=== PATIENT | male | born 1930 | race Caucasian/White ===

== ENCOUNTER 2017-02-19 15:30 | Emergency (ER) | payer MEDICARE, OTHER ==
[2017-02-19] MEDS ORDERED: Acetaminophen 500 MG TAB ONE (16:58)
--- NOTE | 2017-02-19 17:17 | RAD ---
AP VIEW OF THE CHEST: INDICATIONS: Flu-like symptoms with chest pain. COMPARISON: Prior exam dated 03/10/2011. IMPRESSION: No acute cardiopulmonary abnormality. The examination does [facility] appear [facility] Specifically, no focal consolidation is evident. There is interval c hange of a right total shoulder replacement. ACDF is partially visualized within the lower cervical spine. POS: [facility]
[2017-02-19 17:46] LABS: #Eosinphils 0.1 thou/uL (0.0-0.7); #Lymphocytes 2.1 thou/uL (1.20-3.40); #Neutrophils 6.7 thou/uL (1.40-6.50); %Basophils 0.4 % (0.0-1.0); %Eosinophils 0.8 % (0.0-10.0); %Lymphocytes 21.1 % (21.0-51.0); %Monocytes 9.6 % (0.0-10.0); %Neutrophils 68.1 % (42.0-75.0); Hemoglobin 14.7 g/dL (14.0-18.0); Mean Corpuscular HGB CONC 33.6 g/dL (32.0-36.0); Mean Corpuscular Hemoglobin 31.6 pg (27.0-31.0); Mean Platelet Volume 6.4 fL (7.4-10.4); Platelet Count 163 thou/uL (130-400); RBC Distribution Width 12.8 % (11.5-14.5); Red Blood Cell (RBC) Count 4.66 mill/uL (4.70-6.10); White Blood Cell (WBC) Count 9.9 thou/uL (4.8-10.8)
[2017-02-19 18:03] LABS: ALT (SGPT) 32 U/L (8-55); AST (SGOT) 56 U/L (5-34); Albumin 4.2 g/dL (3.4-4.8); Alkaline Phosphatase 71 U/L (40-150); Anion Gap 17 mmol/L (10-20); BUN (Urea Nitrogen) 15 mg/dL (8.4-25.7); Bilirubin, Total 0.9 mg/dL (0.2-1.2); CK (CPK) 699 U/L (30-200); Calc. Creatinine Clearance 0 mL/min (70-130); Calcium 9.8 mg/dL (7.8-10.44); Carbon Dioxide 23 mmol/L (23-31); Chloride 97 mmol/L (98-107); Estimated GFR-MDRD 46; Globulin 3.8 g/dL (2.4-3.5); Glucose 130 mg/dL (83-110); Potassium 4.2 mmol/L (3.5-5.1); Sodium 133 mmol/L (136-145)
[2017-02-19 18:08] LABS: CKMB 3.3 ng/mL (0-6.6); Troponin I 0.016 ng/mL (< 0.028)
== END 2017-02-19 18:37 | disposition home or self-care (01) ==
LOC: ERS 15:30
DX: J11.1 Influenza due to unidentified influenza virus with other respiratory manifestations (principal); I10 Essential (primary) hypertension; E11.9 Type 2 diabetes mellitus without complications; Z79.84 Long term (current) use of oral hypoglycemic drugs
CPT/HCPCS: 36415; 71010; 80053; 82553; 83605; 84484; 85025; 87081; 87430; 93005

== ENCOUNTER 2017-08-29 01:23 | Emergency (ER) | payer MEDICARE, OTHER ==
[2017-08-29] MEDS ORDERED: HYDROcodone/Acetaminophen 5/325 mg Tablet ONE (02:12)
--- NOTE | 2017-08-29 08:05 | RAD ---
LEFT SHOULDER 3 VIEWS: Date: 08/29/17 HISTORY: Fall. Left shoulder pain. FINDINGS/IMPRESSION: There is a mildly angulated, comminuted fracture involving the proximal left humerus. POS: [facility]
--- NOTE | 2017-08-29 08:08 | RAD ---
3 VIEWS LEFT HAND: Date: 08/29/17 HISTORY: Left hand trauma with pain. FINDINGS: AP, lateral, and oblique views of left hand obtained. 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 No evidence of acute fractures or left hand bony lesions seen. IMPRESSION: No evidence of acute left hand abnormality seen. POS: [facility]
--- NOTE | 2017-08-29 08:12 | RAD ---
2 VIEWS LEFT ELBOW: Date: 08/29/17 HISTORY: Fall. FINDINGS: AP and lateral views of left elbow obtained. Two views of the left elbow demonstrate no evidence of left elbow fractures, subluxations, or bony le sions. IMPRESSION: Normal 2 views left elbow. POS: [facility]
--- NOTE | 2017-08-29 09:13 | RAD ---
LEFT HUMERUS 2 VIEWS: Date: 08/29/17 HISTORY: Fall, left shoulder pain. FINDINGS/IMPRESSION: There is a minimally displaced, comminuted fracture involving the left proximal humerus. POS: [facility]
== END 2017-08-29 03:36 | disposition home or self-care (01) ==
LOC: ERS 01:23
DX: S42.202A Unspecified fracture of upper end of left humerus, initial encounter for closed fracture (principal); I10 Essential (primary) hypertension; E11.9 Type 2 diabetes mellitus without complications; Z79.84 Long term (current) use of oral hypoglycemic drugs; Z79.899 Other long term (current) drug therapy; W01.0XXA Fall on same level from slipping, tripping and stumbling without subsequent striking against object, initial encounter

== ENCOUNTER 2017-09-01 11:11 | Emergency (ER) | payer MEDICARE, OTHER ==
--- NOTE | 2017-09-01 12:20 | RAD ---
LEFT SHOULDER 3 VIEWS: Date: 09/01/17 HISTORY: Left shoulder pain, fracture. FINDINGS/IMPRESSION: There is a mildly displaced comminuted fracture involving the left proximal humerus, which was noted on the previous study. There is mildly increased displacement of the greater tuberosity fracture frag ment. No dislocation is seen. POS: [facility]
[2017-09-01] MEDS ORDERED: HYDROcodone/Acetaminophen 10/325 mg Tablet ONE (12:34)
== END 2017-09-01 12:45 | disposition home or self-care (01) ==
LOC: ERS 11:11
DX: S42.252A Displaced fracture of greater tuberosity of left humerus, initial encounter for closed fracture (principal); I10 Essential (primary) hypertension; E11.9 Type 2 diabetes mellitus without complications; X58.XXXA Exposure to other specified factors, initial encounter

== ENCOUNTER 2017-12-27 14:29 | Outpatient (CLI) | payer MEDICARE, OTHER ==
--- NOTE | 2017-12-27 14:51 | RAD ---
TWO VIEW CHEST SERIES: History: Pre-operative evaluation. Comparison: 02-19-17 FINDINGS: Mild patchy left basilar density is similar. Cardiomediastinal silhouette is stable. No significant i nterval change. IMPRESSION: Subtle patchy left basilar density is grossly stable and may relate to an areas of scarring. POS: [facility]
== END 2017-12-27 14:30 | disposition home or self-care (01) ==
LOC: RAD-FRANK 14:29
PROVIDERS: ATTEND Internal Medicine
DX: Z01.818 Encounter for other preprocedural examination (principal)
CPT/HCPCS: 71046

== ENCOUNTER 2018-01-01 10:15 | Inpatient (IN) | payer MEDICARE, OTHER ==
[2018-01-01 10:46] VITALS: BMI 26.3
[2018-01-03] MEDS ORDERED: Lidocaine 2% Jelly 5 ML TUBE ONE (10:52)
[2018-01-03] MEDS ORDERED: Midazolam HCl 2 mg/2 ml Vial ONE (11:16)
[2018-01-03] MEDS ORDERED: Fentanyl 100 MCG/2 ML VIAL ONE ×2 (11:16→14:34)
[2018-01-03] MEDS ORDERED: CEFAZOLIN 2 GM/50 ML BAG ONE (11:58)
[2018-01-03] MEDS ORDERED: Promethazine HCl 25 MG/ML VIAL IM PRN (12:04)
[2018-01-03] MEDS ORDERED: Phenylephrine HCL 10 MG/ML VIAL ONE (12:04)
[2018-01-03] MEDS ORDERED: Fentanyl 100 MCG/2 ML VIAL SLOW IVP PRN (12:04)
[2018-01-03] MEDS ORDERED: HYDROcodone/Acetaminophen 5/325 mg Tablet PO PRN (12:04)
[2018-01-03] MEDS ORDERED: Ondansetron PF 4 MG/2 ML Vial IVP PRN (12:04)
[2018-01-03] MEDS ORDERED: traMADol HCl 50 MG TAB PO PRN ×2 (12:04)
[2018-01-03] MEDS ORDERED: Zolpidem Tartrate 5 MG TAB PO PRN (12:04)
[2018-01-03] MEDS ORDERED: Ropivacaine 0.2% 550 ML 550 ML NERVE BLCK SCH (12:04)
[2018-01-03] MEDS ORDERED: Acetaminophen 500 MG TAB PO PRN (12:07)
[2018-01-03] MEDS ORDERED: CEFAZOLIN/Water 2 GM/20 ML SYRINGE SLOW IVP SCH (14:15)
[2018-01-03] MEDS ORDERED: RENALLY ADJUST ABX FS SCH (14:15)
[2018-01-03] MEDS ORDERED: Milk Of Magnesia 30 ML UDCUP PO PRN (14:15)
[2018-01-03] MEDS ORDERED: Ondansetron HCl/PF 4 MG/2 ML Vial IVP PRN (14:32)
[2018-01-03] MEDS ORDERED: Ropivacaine 0.2% HCl/PF (40 MG/20 ML VIAL) ONE (15:57)
--- NOTE | 2018-01-03 16:15 | RAD ---
TWO VIEW LEFT SHOULDER SERIES: 01/03/18 INDICATION: Left shoulder arthroplasty. FINDINGS: Two views of the left shoulder reveal left shoulder prosthesis without evidence of hardware complicat ion visualized. There is a component of osseous fragmentation at the residual proximal left humerus. There is incidental note of patchy density of the left lung base. IMPRESSION: 1. Postoperative left shoulder without acute hardware complication identified. 2. There is residual osseous fragmentation adjacent the lateral and proximal aspect of the humer al prosthetic component. POS: [facility]
[2018-01-03] MEDS: HYDROcodone/Acetaminophen 5/325 mg Tablet PO PRN ×2 (16:18→22:58)
[2018-01-03] MEDS ORDERED: PROPOFOL 200 MG/20 ML VIAL ONE (17:25)
[2018-01-03] MEDS ORDERED: Glycopyrrolate 0.2 MG/ML 5 ML SYRINGE ONE (17:25)
[2018-01-03] MEDS ORDERED: Ondansetron PF 4 MG/2 ML Vial ONE (17:25)
[2018-01-03] MEDS ORDERED: PHENYLEPHRINE-NS 100 MCG/ML 10 ML SYRINGE ONE (17:25)
[2018-01-03] MEDS: Ketorolac Tromethamine 30 MG/ML VIAL IVP SCH ×2 (17:35→23:02)
--- NOTE | 2018-01-03 18:44 | OP ---
DATE OF PROCEDURE: 01/03/2018 OPERATION: Left reverse shoulder arthroplasty. PREOPERATIVE DIAGNOSIS: Left proximal humerus fracture nonunion. POSTOPERATIVE DIAGNOSIS: Left proximal humerus fracture, nonunion. COMPLICATIONS: None. ESTIMATED BLOOD LOSS: Minimal. SURGEON: Santino Harkins M.D. ANESTHESIA: General. KNIFE SETTER: Jeanmarie Long PA-C. ESTIMATED BLOOD LOSS: 400 mL IMPLANTS: DePuy reverse shoulder arthroplasty size 14 stem +18 buildup including a +9 polyethylene, 42 mm glenosphere. INDICATIONS: Mr. Solis is an 87-year-old male who fractured his left proximal humerus. This deve loped nonunion. He had significant disability and pain from this. He was indicated for reverse shou lder arthroplasty to restore function and relieve symptoms. Risks were reviewed in detail. He elect ed to proceed with the operation. DESCRIPTION OF PROCEDURE: Mr. Solis was identified in the preoperative holding area. His correct extremity was marked. He was carried to the operating room. He was positioned supine. General ane sthesia was induced. A multidisciplinary timeout was performed. The left upper extremity was preppe d and draped in sterile fashion. We began the procedure with deltopectoral approach. We dissected down through the subcutaneous tissu es to the fascia. The level of the fascia was exposed. We exposed the underlying brachiocephalic vei n. We developed deltopectoral interval bluntly. At this point, we exposed the underlying clavipecto ral fascia, which was incised. We then encountered the proximal humerus fracture. We developed a pl ane of the subscapularis and held a small fragment of the lesser tuberosity as well as greater tubero sity with stay sutures. We removed the broken humeral head. We cleared the glenoid fossa of all fra gments. At this point, we exposed the glenoid. We placed a center pin in the glenoid. We over ream ed this and then drilled for central peg. At this point, we impacted our baseplate. Three screws we re placed in the baseplate. These were locking in nature. We then impacted our glenosphere and tig tened our locking screw for this. Finally, we double delivered the humeral stem. We reamed the stem up to a size 14, which gave good chatter. We then trialed off of our trial component, which was a 1 4. We built up to a +18 buildup. This gave good stability and range of motion with no impingement a nd no evidence of subluxation. We accepted this. We removed all trial components. After thorough i rrigation, we impacted our final components. We then reduced the shoulder, and closed the deep tissu es including the lesser tuberosity and greater tuberosity with #5 Ethibond sutures. We finished clos ure in layers. [place] were used for the skin. A sterile dressing was applied. The patient was nehemiah en to the recovery room in good condition.
[2018-01-03] MEDS: CEFAZOLIN 2 GM/50 ML-DEXTROSE 2 GM in Premix Bag 1 BAG IVPB SCH (20:32)
[2018-01-03] MEDS: Benzocaine 20% Spray 60 ML CAN PO PRN (23:44)
[2018-01-04] MEDS: CEFAZOLIN 2 GM/50 ML-DEXTROSE 2 GM in Premix Bag 1 BAG IVPB SCH (03:57)
[2018-01-04] MEDS: Benzocaine 20% Spray 60 ML CAN PO PRN (05:29)
[2018-01-04] MEDS: Ketorolac Tromethamine 30 MG/ML VIAL IVP SCH ×3 (05:29→17:04)
[2018-01-04 05:44] LABS: #Lymphocytes 2.1 thou/uL (1.20-3.40); #Monocytes 1.2 thou/uL (0.11-0.59); #Neutrophils 8.1 thou/uL (1.40-6.50); %Basophils 0.2 % (0.0-1.0); %Eosinophils 0.4 % (0.0-10.0); %Lymphocytes 18.7 % (21.0-51.0); %Monocytes 10.2 % (0.0-10.0); %Neutrophils 70.6 % (42.0-75.0); Hemoglobin 10.8 g/dL (14.0-18.0); Mean Corpuscular Hemoglobin 31.3 pg (27.0-31.0); Mean Platelet Volume 7.2 fL (7.4-10.4); Platelet Count 168 thou/uL (130-400); RBC Distribution Width 12.3 % (11.5-14.5); Red Blood Cell (RBC) Count 3.46 mill/uL (4.70-6.10); White Blood Cell (WBC) Count 11.5 thou/uL (4.8-10.8)
[2018-01-04] MEDS: Glimepiride 1 MG TAB PO SCH (08:18)
[2018-01-04] MEDS: Amlodipine 5 MG TAB PO SCH (08:18)
[2018-01-04] MEDS: metFORMIN 500 MG TAB PO SCH ×2 (08:18→17:06)
[2018-01-04] MEDS: Tamsulosin HCl 0.4 MG CAP PO SCH (08:18)
[2018-01-04] MEDS: HYDROcodone/Acetaminophen 5/325 mg Tablet PO PRN ×3 (09:50→21:06)
[2018-01-04] MEDS ORDERED: Albuterol Sulfate 2.5 mg/3 ml Neb NEB SCH (11:45)
[2018-01-04] MEDS: Cepastat Lozenges 1 LOZ PO PRN ×2 (19:02→21:09)
[2018-01-04] MEDS ORDERED: Atorvastatin Calcium 10 MG TAB PO SCH (21:00)
[2018-01-04] MEDS ORDERED: Finasteride 5 MG TAB PO SCH (21:00)
[2018-01-05] MEDS: Tamsulosin HCl 0.4 MG CAP PO SCH (09:59)
[2018-01-05] MEDS: Amlodipine 5 MG TAB PO SCH (09:59)
[2018-01-05] MEDS: Glimepiride 1 MG TAB PO SCH (09:59)
[2018-01-05] MEDS: metFORMIN 500 MG TAB PO SCH (09:59)
[2018-01-05] MEDS: HYDROcodone/Acetaminophen 5/325 mg Tablet PO PRN (10:48)
[2018-01-05 11:16] VITALS: BP 160/78; TEMP 98.4
== END 2018-01-05 12:48 | disposition home or self-care (01) | DRG 483 ==
LOC: SURG A 01-03 10:14 → SURG B 01-03 16:01
PROVIDERS: ADMIT Orthopaedic Surgery; ATTEND Orthopaedic Surgery
PROC: 0RRK00Z Replacement of Left Shoulder Joint with Reverse Ball and Socket Synthetic Substitute, Open Approach (ICD-10-PCS; principal; 2018-01-03)
DX: S42.292A Other displaced fracture of upper end of left humerus, initial encounter for closed fracture (principal); E11.9 Type 2 diabetes mellitus without complications; I10 Essential (primary) hypertension; K21.9 Gastro-esophageal reflux disease without esophagitis; E78.5 Hyperlipidemia, unspecified; F41.9 Anxiety disorder, unspecified; J42 Unspecified chronic bronchitis; F03.90 Unspecified dementia, unspecified severity, without behavioral disturbance, psychotic disturbance, mood disturbance, and anxiety; Z79.84 Long term (current) use of oral hypoglycemic drugs; Z79.899 Other long term (current) drug therapy; Z96.611 Presence of right artificial shoulder joint; W19.XXXA Unspecified fall, initial encounter; Z01.818 Encounter for other preprocedural examination
CPT/HCPCS: 36415; 36416; 80048; 85025; 85027; 85610; 85730; 93005; 93010; 94640; A4306; G8978-GP-CJ; G8979-GP-CI; J1885; J2250; J2370; J2405; J2704; J2795; J3010; J7611

== ENCOUNTER 2018-01-01 10:27 | Outpatient (CLI) | payer MEDICARE, OTHER ==
[2018-01-01 11:38] LABS: Mean Corpuscular HGB CONC 34.1 g/dL (32.0-36.0); Mean Corpuscular Hemoglobin 31.3 pg (27.0-31.0); Mean Corpuscular Volume 91.8 fL (78.0-98.0); Platelet Count 210 thou/uL (130-400); RBC Distribution Width 12.3 % (11.5-14.5); Red Blood Cell (RBC) Count 4.47 mill/uL (4.70-6.10); White Blood Cell (WBC) Count 8.3 thou/uL (4.8-10.8)
[2018-01-01 11:43] LABS: Prothrombin Time 13.7 SEC (12.0-14.7)
[2018-01-01 11:44] LABS: PTT 32.3 SEC (22.9-36.1)
[2018-01-01 11:47] LABS: Anion Gap 15 mmol/L (10-20); BUN (Urea Nitrogen) 19 mg/dL (8.4-25.7); Calc. Creatinine Clearance 0 mL/min (70-130); Calcium 9.8 mg/dL (7.8-10.44); Carbon Dioxide 23 mmol/L (23-31); Chloride 101 mmol/L (98-107); Estimated GFR-MDRD 39; Glucose 278 mg/dL (83-110); Potassium 4.3 mmol/L (3.5-5.1); Sodium 135 mmol/L (136-145)
--- NOTE | 2018-01-02 08:51 | EKG ---
Test Reason : Blood Pressure : / mmHG Vent. Rate : 085 BPM Atrial Rate : 042 BPM P-R Int : 000 ms QRS Dur : 110 ms QT Int : 414 ms P-R-T Axes : 000 -25 037 degrees QTc Int : 492 ms Accelerated Junctional rhythm with retrograde conduction Incomplete right bundle branch block Inferior infarct , age undetermined Abnormal ECG When compared with ECG of 19-FEB-2017 15:45, Junctional rhythm has replaced Sinus rhythm Incomplete right bundle branch block is now Present Inferior infarct is now Present Confirmed by DR. Linus BYRNE ([id number]) on 01/02/2018 8:50:23 AM Referred By: KIMBERLY Confirmed By:DR. Linus BYRNE
== END 2018-01-01 10:28 | disposition home or self-care (01) ==
LOC: LABBT 10:27
PROVIDERS: ATTEND Orthopaedic Surgery
DX: Z01.818 Encounter for other preprocedural examination (principal); S42.202A Unspecified fracture of upper end of left humerus, initial encounter for closed fracture
CPT/HCPCS: 80048; 85027; 85610; 85730; 93005; 93010

== ENCOUNTER 2018-02-28 08:18 | Emergency (ER) | payer MEDICARE, OTHER ==
[2018-02-28 09:13] LABS: #Basophils 0.1 thou/uL (0.0-0.2); #Eosinphils 0.2 thou/uL (0.0-0.7); #Lymphocytes 2.1 thou/uL (1.20-3.40); #Monocytes 0.5 thou/uL (0.11-0.59); #Neutrophils 5.1 thou/uL (1.40-6.50); %Basophils 0.6 % (0.0-1.0); %Eosinophils 2.1 % (0.0-10.0); %Lymphocytes 26.9 % (21.0-51.0); %Monocytes 6.3 % (0.0-10.0); Hemoglobin 11.9 g/dL (14.0-18.0); Mean Corpuscular HGB CONC 33.8 g/dL (32.0-36.0); Mean Corpuscular Hemoglobin 30.7 pg (27.0-31.0); Mean Corpuscular Volume 90.6 fL (78.0-98.0); Mean Platelet Volume 7.2 fL (7.4-10.4); Platelet Count 203 thou/uL (130-400); RBC Distribution Width 12.5 % (11.5-14.5); Red Blood Cell (RBC) Count 3.89 mill/uL (4.70-6.10); White Blood Cell (WBC) Count 7.9 thou/uL (4.8-10.8)
[2018-02-28 09:33] LABS: ALT (SGPT) 10 U/L (8-55); AST (SGOT) 19 U/L (5-34); Albumin 3.9 g/dL (3.4-4.8); Alkaline Phosphatase 81 U/L (40-150); Anion Gap 16 mmol/L (10-20); BUN (Urea Nitrogen) 12 mg/dL (8.4-25.7); Bilirubin, Total 0.9 mg/dL (0.2-1.2); CK (CPK) 182 U/L (30-200); Calc. Creatinine Clearance 0 mL/min (70-130); Calcium 9.1 mg/dL (7.8-10.44); Carbon Dioxide 17 mmol/L (23-31); Chloride 103 mmol/L (98-107); Estimated GFR-MDRD 49; Globulin 3.1 g/dL (2.4-3.5); Glucose 151 mg/dL (83-110); Potassium 3.9 mmol/L (3.5-5.1); Sodium 132 mmol/L (136-145)
--- NOTE | 2018-02-28 09:41 | RAD ---
2 VIEWS CHEST: Date: 02/28/18 COMPARISON: 12/27/17. HISTORY: Congestion and cough with shortness of breath. FINDINGS: There is mild new hazy increased density in the right lung base inferiorly with blunting of the right costophrenic angle. There is also slight blunting of the left costophrenic angle. Findings are consi stent with interval development of small bilateral pleural effusions, which can be seen on the basis of pulmonary edema. Bilateral shoulder arthroplasties are present. No pneumothorax or lobar consolidation. IMPRESSION: New small bilateral pleural effusions, which may signify edema. POS: [facility]
[2018-02-28] MEDS ORDERED: Furosemide 40 MG TAB ONE (09:55)
--- NOTE | 2018-03-02 14:29 | EKG ---
Test Reason : Blood Pressure : / mmHG Vent. Rate : 068 BPM Atrial Rate : 090 BPM P-R Int : 000 ms QRS Dur : 110 ms QT Int : 446 ms P-R-T Axes : 000 -23 024 degrees QTc Int : 474 ms Sinus rhythm with 2nd degree A-V block (Mobitz I) Low voltage QRS Incomplete right bundle branch block Inferior infarct , age undetermined Abnormal ECG New ECG changes Confirmed by ASHWINI GRIFFITH, LILLIANA King ([id number]), tape editor CHELSEA MALLORY ([id number]) on 03/02/2018 2:29:10 PM Referred By: Confirmed By:LILLIANA MARADIAGA MD
== END 2018-02-28 10:20 | disposition home or self-care (01) ==
LOC: ERS 08:18
DX: I11.0 Hypertensive heart disease with heart failure (principal); I50.9 Heart failure, unspecified; E11.9 Type 2 diabetes mellitus without complications
CPT/HCPCS: 36415; 71046; 80053; 82550; 83880; 84484; 85025; 93005

== ENCOUNTER 2018-03-27 14:39 | Outpatient (CLI) | payer MEDICARE, OTHER ==
--- NOTE | 2018-03-27 15:16 | RAD ---
TWO VIEWS CHEST: COMPARISON: 02/28/2018. HISTORY: Left lower lobe pneumonia. FINDINGS: Two views of the chest show normal sized cardiomediastinal silhouette. There is no evidence of consol idation, mass, or pleural effusion. Hardware is seen in both shoulders and in the cervical spine. IMPRESSION: No evidence of acute cardiopulmonary disease. POS: [facility]
== END 2018-03-27 14:40 | disposition home or self-care (01) ==
LOC: RAD-FRANK 14:39
PROVIDERS: ATTEND Nurse Practitioner Family
DX: J18.1 Lobar pneumonia, unspecified organism (principal)
CPT/HCPCS: 71046

== ENCOUNTER 2018-11-26 09:46 | Outpatient (CLI) | payer MEDICARE, OTHER ==
--- NOTE | 2018-11-26 13:34 | MRI ---
MRI CERVICAL SPINE WITHOUT CONTRAST: Date: 11/26/18 INDICATION: Cervical spondylosis with myelopathy. Correlation made to cervical spine from 2011. FINDINGS: Postoperative changes have occurred since the prior exam. Anterior plate and screws with fusion butler es at C5-6 now noted. Degenerative changes at all levels. Loss of disc space at C4-5 and C6-7. Promin ent osteophytes from the cervical vertebra. At C3-4, posterior disc bulge and spondylosis abut the anterior cord. Mild left foraminal narrowing d ue to facet and uncinate hypertrophy. At C4-5, posterior disc bulge and spondylosis impinge on and flatten the anterior cord. Left foramina l narrowing due to hypertrophic change. At C5-6, disc bulge and spondylosis impinge on the anterior cord. Left foraminal stenosis. At C6-7, disc bulge and spondylosis efface the anterior subarachnoid space. Foramina appear patent. Cord signal appears normally maintained. IMPRESSION: Posterior disc bulge and spondylosis impinge on the cord at C3-4, C4-5, and C5-6. Central canal steno sis and cord compression is most pronounced at C4-5. Foraminal encroachment due to hypertrophic butler e is noted as described. POS: [facility]
--- NOTE | 2018-11-26 13:46 | MRI ---
MRI BRAIN WITH AND WITHOUT CONTRAST: Date: 11/26/18 INDICATION: Memory deficit. FINDINGS: Moderate cortical volume loss. Mild to moderate chronic ischemic white matter change. No evidence of restricted diffusion. No mass or edema. On the postcontrast images, there is an enhancing nodular mass within the anterior falx measuring 1.1 cm AP dimension. This lesion exhibits loss of signal on T2 and hypointense signal on FLAIR. It has l oss of signal gradient echo suggesting internal calcification. The slight enhancement seen on postcon trast images appear to indicate a small meningioma, which is partially calcified. No abnormal parenchymal enhancement. The intracranial internal carotid arteries and cerebral arteries exhibit flow-voids. Mild mucosal kiana ma in the maxillary sinuses. IMPRESSION: Moderate cortical atrophy and mild chronic ischemic white matter change. 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 No acute process. POS: [facility]
[2018-11-26] MEDS ORDERED: Gadobenate Dimeglumine 529 MG/1 ML (20ML VIAL) ONE (13:50)
== END 2018-11-26 09:47 | disposition home or self-care (01) ==
LOC: BICMRI 09:46
PROVIDERS: ATTEND Psychiatry & Neurology Neurology
DX: R41.3 Other amnesia (principal); M47.812 Spondylosis without myelopathy or radiculopathy, cervical region; M50.21 Other cervical disc displacement, high cervical region
CPT/HCPCS: 70553; 72141; 82565; A9577